=== PATIENT | male | born 1980 | race Caucasian/White ===

== ENCOUNTER 2019-03-21 07:46 | Emergency (ER) | payer BC ==
[~2019-03-21] VITALS: Ht 185.4 cm; Wt 135.5 kg
[2019-03-21 08:06] VITALS: TEMP 98
[2019-03-21] MEDS ORDERED: EFFEXOR 3737.5 MG/TA PO (08:31)
[2019-03-21] MEDS ORDERED: PLAVIX 75MG TAB75 MG PO (08:31)
[2019-03-21] MEDS ORDERED: ZESTRIL 10MG10 MG PO (08:31)
[2019-03-21] MEDS ORDERED: PROTONIX 40MG T40 MG PO (08:31)
[2019-03-21] MEDS ORDERED: LIPITOR 40MG TA40 MG PO (08:32)
[2019-03-21 08:55] LABS: BASO # 0.1 (0.0-0.2); BASO % 0.5 % (0.0-2.0); EOS # 0.3 (0.0-0.7); EOS % 3.4 % (0-4.0); GRAN # 5.4 (1.4-6.5); GRAN % 59.6 % (42.2-75.2); HEMATOCRIT 49.2 % (42.0-52.0); HEMOGLOBIN 17.4 g/dl (13.5-18.0); LYMPH # 2.6 (1.2-3.4); LYMPH % 28.1 % (20.0-51.0); MEAN CELL VOLUME 87 fl (80.0-100.0); MEAN CORPUSCULAR HEMOGLOBIN 31 pg (27.0-31.0); MEAN CORPUSCULAR HGB CONC 35 g/dl (33.0-37.0); MEAN PLATELET VOLUME 9.7 fl (7.4-10.4); MONO # 0.7 (0.1-0.6); MONO % 7.9 % (1.7-9.3); PLATELET COUNT 272 K/mm3 (130-400); RED BLOOD COUNT 5.67 M/mm3 (4.20-5.60); REDCELL DISTRIBUTION WIDTH-CV 13.8 % (11.5-14.5)
[2019-03-21 09:15] LABS: ALANINE AMINOTRANSFERASE 26 U/L (21-72); ALBUMIN 3.9 gm/dL (3.5-5.0); ALKALINE PHOSPHATASE 77 U/L (50-136); ANION GAP 7 mmol/L (7-16); AST,SGOT 27 U/L (15-37); BILIRUBIN,TOTAL 0.7 mg/dL (0.0-1.0); BLOOD UREA NITROGEN 10 mg/dL (9-20); CARBON DIOXIDE 25 mmol/L (22-30); CHLORIDE 106 mmol/L (98-107); CREATININE, serum 1.11 (0.66-1.25); GLUCOSE 88 mg/dL (74-106); POTASSIUM 4.1 mmol/L (3.4-5.0); SODIUM 137 mmol/L (137-145); TOTAL PROTEIN 6.7 gm/dL (6.4-8.2)
[2019-03-21 09:24] LABS: C-REACTIVE PROTEIN < 0.5 mg/dL (0.0-0.9)
[2019-03-21 10:34] LABS: COLLECTION METHOD CLEAN CATCH
[2019-03-21 10:44] LABS: MUCOUS Present /lpf; PH 7 (5-8); SQUAMOUS EPITHELIAL None Seen /hpf; URINE APPEARANCE Clear; URINE BACTERIA None Seen /hpf; URINE BILIRUBIN Negative (NEGATIVE); URINE BLOOD Negative (NEGATIVE); URINE COLOR Yellow; URINE GLUCOSE Negative (NEGATIVE); URINE KETONE Negative (NEGATIVE); URINE LEUKOCYTE ESTERASE Negative (NEGATIVE); URINE NITRATE Negative (NEGATIVE); URINE PROTEIN(semi-quant) Negative (NEGATIVE); URINE RBC 0-2 /hpf; URINE UROBILINOGEN Negative (NEGATIVE)
[2019-03-21] MEDS ORDERED: PERCOCET 325 MG1 TA2 PO (14:39)
[2019-03-21 14:59] VITALS: BP 145/104; PULSE 95
== END 2019-03-21 15:05 | disposition home or self-care (01) ==
LOC: COL.ER 07:46
PROVIDERS: Nurse Practitioner
DX: M54.16 Radiculopathy, lumbar region (principal); I25.10 Atherosclerotic heart disease of native coronary artery without angina pectoris; I10 Essential (primary) hypertension; K21.9 Gastro-esophageal reflux disease without esophagitis; F41.9 Anxiety disorder, unspecified; F17.210 Nicotine dependence, cigarettes, uncomplicated; M54.5 Low back pain; G89.29 Other chronic pain; Z79.02 Long term (current) use of antithrombotics/antiplatelets; Z98.890 Other specified postprocedural states
CPT/HCPCS: A9585; J1170

== ENCOUNTER → 2019-06-02 | Outpatient (CLI) | payer BC ==
[~2019-06-02] MED LIST: EFFEXOR 3737.5 MG/TA PO; LIPITOR 40MG TA40 MG PO; PERCOCET 325 MG1 TA2 PO; PLAVIX 75MG TAB75 MG PO; PROTONIX 40MG T40 MG PO; ZESTRIL 10MG10 MG PO
[2019-06-02 16:50] LABS: CALCIUM 8.6 mg/dL (8.4-10.2); CREATININE, serum 1.24 (0.66-1.25); POTASSIUM 4.1 mmol/L (3.4-5.0)
== END ==
LOC: ZCOL.LAB 16:34
PROVIDERS: Family Medicine
DX: I10 Essential (primary) hypertension (principal)

== ENCOUNTER 2019-08-02 10:14 | Emergency (ER) | payer BC ==
[~2019-08-02] VITALS: Ht 185.4 cm; Wt 134.1 kg
[2019-08-02 10:25] VITALS: TEMP 98.7
[2019-08-02 10:57] LABS: BASO # 0.1 (0.0-0.2); BASO % 0.6 % (0.0-2.0); EOS # 0.3 (0.0-0.7); GRAN # 7.4 (1.4-6.5); HEMATOCRIT 44.6 % (42.0-52.0); HEMOGLOBIN 15.6 g/dl (13.5-18.0); LYMPH # 2.1 (1.2-3.4); LYMPH % 20.1 % (20.0-51.0); MEAN CELL VOLUME 89 fl (80.0-100.0); MEAN CORPUSCULAR HEMOGLOBIN 31 pg (27.0-31.0); MEAN CORPUSCULAR HGB CONC 35 g/dl (33.0-37.0); MEAN PLATELET VOLUME 9.9 fl (7.4-10.4); MONO # 0.6 (0.1-0.6); MONO % 5.9 % (1.7-9.3); PLATELET COUNT 255 K/mm3 (130-400); RED BLOOD COUNT 4.99 M/mm3 (4.20-5.60); REDCELL DISTRIBUTION WIDTH-CV 13.1 % (11.5-14.5)
[2019-08-02 11:01] LABS: PROTHROMBIN TIME 11.4 SECONDS (9.7-12.8)
[2019-08-02 11:02] LABS: ALANINE AMINOTRANSFERASE 33 U/L (21-72); ALBUMIN 4.1 gm/dL (3.5-5.0); ALKALINE PHOSPHATASE 64 U/L (50-136); ANION GAP 7 mmol/L (7-16); AST,SGOT 39 U/L (15-37); BILIRUBIN,TOTAL 0.5 mg/dL (0.0-1.0); BLOOD UREA NITROGEN 14 mg/dL (9-20); CALCIUM 8.9 mg/dL (8.4-10.2); CARBON DIOXIDE 25 mmol/L (22-30); CHLORIDE 108 mmol/L (98-107); CREATININE, serum 1.18 (0.66-1.25); GLUCOSE 82 mg/dL (74-106); LIPASE 143 U/L (23-300); PHOSPHOROUS 2.8 mg/dL (2.5-4.5); POTASSIUM 4.8 mmol/L (3.4-5.0); SODIUM 139 mmol/L (137-145)
[2019-08-02 11:04] LABS: PARTIAL THROMBOPLASTIN TIME 29.4 SECONDS (26.0-37.0)
[2019-08-02 11:19] LABS: TROPONIN-I < 0.012 ng/mL (0.000-0.035)
[2019-08-02 12:15] VITALS: BP 117/88; PULSE 62
== END 2019-08-02 12:59 ==
LOC: COL.ER 10:14
PROVIDERS: Emergency Medicine
DX: R07.89 Other chest pain (principal); F17.210 Nicotine dependence, cigarettes, uncomplicated; K21.9 Gastro-esophageal reflux disease without esophagitis; I25.10 Atherosclerotic heart disease of native coronary artery without angina pectoris; Z95.9 Presence of cardiac and vascular implant and graft, unspecified; Z90.89 Acquired absence of other organs; Z79.02 Long term (current) use of antithrombotics/antiplatelets

== ENCOUNTER 2019-08-27 09:56 | Emergency (ER) | payer BC ==
[~2019-08-27] VITALS: Ht 185.4 cm; Wt 133.2 kg
[2019-08-27 10:05] VITALS: TEMP 97.3
[2019-08-27 11:15] LABS: BASO % 0.6 % (0.0-2.0); EOS # 0.2 (0.0-0.7); EOS % 3.5 % (0-4.0); GRAN # 3.1 (1.4-6.5); GRAN % 56.7 % (42.2-75.2); HEMATOCRIT 43.7 % (42.0-52.0); HEMOGLOBIN 15.6 g/dl (13.5-18.0); LYMPH # 1.7 (1.2-3.4); MEAN CELL VOLUME 86 fl (80.0-100.0); MEAN CORPUSCULAR HEMOGLOBIN 31 pg (27.0-31.0); MEAN CORPUSCULAR HGB CONC 36 g/dl (33.0-37.0); MEAN PLATELET VOLUME 9.7 fl (7.4-10.4); MONO # 0.4 (0.1-0.6); MONO % 6.8 % (1.7-9.3); PLATELET COUNT 284 K/mm3 (130-400); RED BLOOD COUNT 5.08 M/mm3 (4.20-5.60); REDCELL DISTRIBUTION WIDTH-CV 12.5 % (11.5-14.5)
[2019-08-27 11:18] LABS: ALANINE AMINOTRANSFERASE 27 U/L (21-72); ALBUMIN 4.2 gm/dL (3.5-5.0); ALKALINE PHOSPHATASE 73 U/L (50-136); ANION GAP 10 mmol/L (7-16); AST,SGOT 44 U/L (15-37); BILIRUBIN,TOTAL 0.6 mg/dL (0.0-1.0); BLOOD UREA NITROGEN 14 mg/dL (9-20); CALCIUM 9.1 mg/dL (8.4-10.2); CARBON DIOXIDE 21 mmol/L (22-30); CHLORIDE 108 mmol/L (98-107); CREATININE, serum 0.99 (0.66-1.25); GLUCOSE 82 mg/dL (74-106); LIPASE 171 U/L (23-300); POTASSIUM 4.5 mmol/L (3.4-5.0); SODIUM 139 mmol/L (137-145); TOTAL PROTEIN 6.9 gm/dL (6.4-8.2)
[2019-08-27 11:30] LABS: TROPONIN-I < 0.012 ng/mL (0.000-0.035)
[2019-08-27] MEDS ORDERED: FLEXERIL 1010 MG/TAB PO (15:13)
[2019-08-27] MEDS ORDERED: NORCO 325 MG-51 TAB PO (15:13)
[2019-08-27] MEDS ORDERED: CARAFATE 1GM1 G PO (15:15)
[2019-08-27 15:32] VITALS: BP 136/100; PULSE 61
== END 2019-08-27 15:32 | disposition home or self-care (01) ==
LOC: COL.ER 09:56
PROVIDERS: Emergency Medicine
DX: R07.89 Other chest pain (principal); R10.13 Epigastric pain; R10.12 Left upper quadrant pain; I25.10 Atherosclerotic heart disease of native coronary artery without angina pectoris; K21.9 Gastro-esophageal reflux disease without esophagitis; Z79.02 Long term (current) use of antithrombotics/antiplatelets; Z87.891 Personal history of nicotine dependence; Z95.5 Presence of coronary angioplasty implant and graft
CPT/HCPCS: J2405; J3010; J7030; Q9967

== ENCOUNTER 2020-01-21 13:23 | Emergency (ER) | payer BC ==
[~2020-01-21] VITALS: Ht 185.4 cm; Wt 131.8 kg
[~2020-01-21 13:23] MED LIST changes: +CARAFATE 1GM1 G PO; +FLEXERIL 1010 MG/TAB PO; +NORCO 325 MG-51 TAB PO; +TOPROL XL 25MG25 MG; +TOPROL XL 50MG50 MG PO; +ZANTAC 7575 MG PO
[2020-01-21 15:22] LABS: BASO % 0.5 % (0.0-2.0); EOS # 0.2 (0.0-0.7); EOS % 2.2 % (0-4.0); GRAN # 5.9 (1.4-6.5); GRAN % 76.4 % (42.2-75.2); HEMATOCRIT 45.7 % (42.0-52.0); HEMOGLOBIN 15.9 g/dl (13.5-18.0); LYMPH # 1.2 (1.2-3.4); LYMPH % 15.7 % (20.0-51.0); MEAN CELL VOLUME 87 fl (80.0-100.0); MEAN CORPUSCULAR HEMOGLOBIN 30 pg (27.0-31.0); MEAN CORPUSCULAR HGB CONC 35 g/dl (33.0-37.0); MEAN PLATELET VOLUME 9.8 fl (7.4-10.4); MONO # 0.4 (0.1-0.6); MONO % 4.7 % (1.7-9.3); PLATELET COUNT 229 K/mm3 (130-400); RED BLOOD COUNT 5.26 M/mm3 (4.20-5.60); REDCELL DISTRIBUTION WIDTH-CV 13.2 % (11.5-14.5)
[2020-01-21 15:23] LABS: PROTHROMBIN TIME 11.6 SECONDS (9.7-12.8)
[2020-01-21 15:25] LABS: PARTIAL THROMBOPLASTIN TIME 30.8 SECONDS (26.0-37.0)
[2020-01-21 15:27] LABS: ALANINE AMINOTRANSFERASE 29 U/L (4-49); ALBUMIN 4.2 gm/dL (3.5-5.0); ALKALINE PHOSPHATASE 68 U/L (50-136); ANION GAP 8 mmol/L (7-16); AST,SGOT 31 U/L (15-37); BLOOD UREA NITROGEN 13 mg/dL (9-20); CALCIUM 9.3 mg/dL (8.4-10.2); CARBON DIOXIDE 23 mmol/L (22-30); CHLORIDE 105 mmol/L (98-107); CREATININE, serum 1.08 (0.66-1.25); GLUCOSE 95 mg/dL (74-106); SODIUM 135 mmol/L (137-145); TOTAL PROTEIN 7.4 gm/dL (6.4-8.2)
[2020-01-21 15:29] LABS: D-DIMER < 200.00 ng/mLDDu (200-230)
[2020-01-21 15:39] LABS: TROPONIN-I < 0.012 ng/mL (0.000-0.035)
[2020-01-21] MEDS ORDERED: ZOFRAN 4MG T4 MG/TAB PO (19:00)
[2020-01-21] MEDS ORDERED: PROTONIX 40MG T40 MG PO (19:00)
[2020-01-21 19:07] VITALS: BP 148/78; PULSE 84; TEMP 98.2
== END 2020-01-21 19:27 | disposition home or self-care (01) ==
LOC: COL.ER 13:23
PROVIDERS: Family Medicine
DX: R07.2 Precordial pain (principal); E86.0 Dehydration; I25.10 Atherosclerotic heart disease of native coronary artery without angina pectoris; F17.200 Nicotine dependence, unspecified, uncomplicated; Z95.5 Presence of coronary angioplasty implant and graft; Z79.02 Long term (current) use of antithrombotics/antiplatelets
CPT/HCPCS: J3010; J7030

== ENCOUNTER 2020-02-21 04:05 | Inpatient (IN) | payer BC ==
[2020-02-21] VITALS (365 sets, daily range): BP systolic 111–140; BP diastolic 77–89; PULSE 53–80; TEMP 97–98; O2SAT 87–100
[~2020-02-21] VITALS: Ht 185.4 cm; Wt 125.2 kg
[~2020-02-21 04:05] MED LIST changes: +ZOFRAN 4MG T4 MG/TAB PO
[2020-02-21 04:26] LABS: BASO # 0.1 (0.0-0.2); BASO % 0.6 % (0.0-2.0); EOS # 0.4 (0.0-0.7); EOS % 4.4 % (0-4.0); GRAN # 4.2 (1.4-6.5); GRAN % 52.3 % (42.2-75.2); HEMATOCRIT 43.3 % (42.0-52.0); HEMOGLOBIN 15.2 g/dl (13.5-18.0); LYMPH # 2.9 (1.2-3.4); LYMPH % 36.5 % (20.0-51.0); MEAN CELL VOLUME 87 fl (80.0-100.0); MEAN CORPUSCULAR HEMOGLOBIN 31 pg (27.0-31.0); MEAN CORPUSCULAR HGB CONC 35 g/dl (33.0-37.0); MEAN PLATELET VOLUME 9.7 fl (7.4-10.4); MONO # 0.5 (0.1-0.6); PLATELET COUNT 249 K/mm3 (130-400); RED BLOOD COUNT 4.99 M/mm3 (4.20-5.60); REDCELL DISTRIBUTION WIDTH-CV 12.6 % (11.5-14.5)
[2020-02-21 04:31] LABS: PROTHROMBIN TIME 10.8 SECONDS (9.7-12.8)
[2020-02-21 04:34] LABS: PARTIAL THROMBOPLASTIN TIME 30.8 SECONDS (26.0-37.0)
[2020-02-21 04:35] LABS: ALANINE AMINOTRANSFERASE 31 U/L (4-49); ALKALINE PHOSPHATASE 62 U/L (50-136); ANION GAP 7 mmol/L (7-16); AST,SGOT 36 U/L (15-37); BILIRUBIN,TOTAL 0.6 mg/dL (0.0-1.0); BLOOD UREA NITROGEN 10 mg/dL (9-20); CALCIUM 8.8 mg/dL (8.4-10.2); CARBON DIOXIDE 20 mmol/L (22-30); CHLORIDE 107 mmol/L (98-107); CREATININE, serum 1.06 (0.66-1.25); GLUCOSE 137 mg/dL (74-106); POTASSIUM 3.9 mmol/L (3.4-5.0); SODIUM 134 mmol/L (137-145); TOTAL PROTEIN 7.2 gm/dL (6.4-8.2)
[2020-02-21 04:49] LABS: TROPONIN-I < 0.012 ng/mL (0.000-0.035)
[2020-02-21] MEDS ORDERED: NORVASC 10MG10 MG PO (08:27)
--- NOTE | 2020-02-21 09:45 | NUR ---
Pt arrived into room IMCU 16. He is ambulatory, A/O x4. His breathing is even and unlabored on RA. Pt denies SOB. Reports Chest pain /, ER nurse reports Nitro not relieving pain and therefore drip stopped. Heparin continued at 10ml/hr. POC discussed with patient who verbalizes understanding. No needs at this time. Pt to remain NPO.
--- NOTE | 2020-02-21 13:09 | NUR ---
SEE MEREGE FOR ALL MEDICATION ADMIN. TIMES AND INTRA AND POST SEDATION
--- NOTE | 2020-02-21 13:48 | NUR ---
Pt arrives to IMCU room 16 via cart. Describes continued midsternal chest pain that radiates through to upper back, SR no ST abnormalities on bedside monitor, call placed for EKG.
--- NOTE | 2020-02-21 14:07 | NUR ---
Poell in to see patient orders for CT with PE protocol. Pt cath is negative. Per report patient hyperventilated during procedure.
--- NOTE | 2020-02-21 15:32 | NUR ---
Returned from CT prn pain med given, instructed technical marketing consultant light use.
--- NOTE | 2020-02-21 19:20 | NUR ---
Bedside report received from ARABELLA Alcala
--- NOTE | 2020-02-21 21:00 | NUR ---
Patient has complaints of pain at this time rated 7/10 in the center of his chest that radiates to his left chest, described as tightness. Assessment complete. Patient has no SOA. Pain medication to be provided. Patient otherwise looks well with no significant findings in exam. Cath site is clean, dry, with no hematoma or pain. patient brought some new water and a pepsi per his request. Provided. No further needs. will continue to monitor pain. Call light within reach.
--- NOTE | 2020-02-21 22:20 | NUR ---
Patient continues to have pain, so second [place] tab given per protocol. Will continue to monitor.
[2020-02-22] VITALS (26 sets, daily range): BP systolic 96–137; BP diastolic 60–90; PULSE 61–73; TEMP 97.8–98; O2SAT 38–99
--- NOTE | 2020-02-22 00:04 | NUR ---
Patient was continuing to have pain despite second dose. Order received for one time dose of 2mg morphine IV. Patient now reports pain a 3/10. Will continue to monitor. Call light within reach.
[2020-02-22 06:21] LABS: BASO % 0.7 % (0.0-2.0); EOS # 0.2 (0.0-0.7); EOS % 3.9 % (0-4.0); GRAN # 2.9 (1.4-6.5); HEMATOCRIT 41.5 % (42.0-52.0); HEMOGLOBIN 14.3 g/dl (13.5-18.0); LYMPH # 2.1 (1.2-3.4); LYMPH % 36.3 % (20.0-51.0); MEAN CELL VOLUME 90 fl (80.0-100.0); MEAN CORPUSCULAR HEMOGLOBIN 31 pg (27.0-31.0); MEAN CORPUSCULAR HGB CONC 35 g/dl (33.0-37.0); MEAN PLATELET VOLUME 9.9 fl (7.4-10.4); MONO # 0.4 (0.1-0.6); MONO % 7.7 % (1.7-9.3); PLATELET COUNT 197 K/mm3 (130-400); RED BLOOD COUNT 4.62 M/mm3 (4.20-5.60); REDCELL DISTRIBUTION WIDTH-CV 12.9 % (11.5-14.5)
[2020-02-22 06:43] LABS: CALCIUM 8.7 mg/dL (8.4-10.2); CREATININE, serum 1.12 (0.66-1.25); MAGNESIUM 2.2 mg/dL (1.6-2.3); POTASSIUM 4.5 mmol/L (3.4-5.0)
--- NOTE | 2020-02-22 07:13 | NUR ---
Bedside report given to ARABELLA Neri
--- NOTE | 2020-02-22 10:07 | NUR ---
CLARKE met with the patient to discuss discharge plan. The patient lives in [place] with his xawet-pqra-ovs daughter and works at [employer]. He states that his ynmarcqmb-[id number]-lim son will be coming to live with them soon. His daughter is staying with a design manager while he is here. He reports independence with ADLs and has a cane available to him if needed. The patient's PCP is Dr. Shanelle Wang and he receives his medications at [facility]. He reports no difficulties obtaining his meds. The patient does not have advanced directives, but he was interested in obtaining a form for DPOA-HC. CLARKE provided. The patient is not . His mother, Anila Gatica (ph#[phone]), is his emergency contact and she lives in [facility]. The patient plans to return home with his children upon discharge. No additional needs at this time.
--- NOTE | 2020-02-22 10:08 | NUR ---
Assessment completed, alert/oriented, vital signs stable, reports continued chest/ epigastric discomfort that is constant, heart RRR/ distal pulses are palapble, lungs CTA/ no reps.difficulty noted, patient is not eating his breakfast as he is hoping to have and EGD done today/ however there is no order for this procedure at this time, will dsicuss plan of care with hospitalist, denies other needs at this fan
--- NOTE | 2020-02-22 12:39 | NUR ---
Patient discharging, instructed to follow up with GI/PCP/Cardiology as we have scheduled for him, instructed to continue all previous home meds with NO new meds or changes made, IV and tele remvoed, leaving with his , I personally escorted him out the door
== END 2020-02-22 12:41 | disposition home or self-care (01) | DRG 287 ==
LOC: COL.ER 04:05 → IMCU 07:53
PROVIDERS: Emergency Medicine; ADMIT Internal Medicine
PROC: 4A023N7 Measurement of Cardiac Sampling and Pressure, Left Heart, Percutaneous Approach (ICD-10-PCS; principal; 2020-02-21)
PROC: B2111ZZ Fluoroscopy of Multiple Coronary Arteries using Low Osmolar Contrast (ICD-10-PCS; 2020-02-21)
PROC: B2151ZZ Fluoroscopy of Left Heart using Low Osmolar Contrast (ICD-10-PCS; 2020-02-21)
DX: R07.89 Other chest pain (principal); G89.29 Other chronic pain; I25.10 Atherosclerotic heart disease of native coronary artery without angina pectoris; Z95.5 Presence of coronary angioplasty implant and graft; K21.9 Gastro-esophageal reflux disease without esophagitis; F32.9 Major depressive disorder, single episode, unspecified; E78.49 Other hyperlipidemia; I10 Essential (primary) hypertension; F17.210 Nicotine dependence, cigarettes, uncomplicated
CPT/HCPCS: 99239; C1760; C1894; J1644; J2250; J2270; J2405; J3010; J7030; Q9967

== ENCOUNTER 2020-05-27 09:50 | Emergency (ER) | payer BC ==
[~2020-05-27] VITALS: Ht 185.4 cm; Wt 129.5 kg
[~2020-05-27 09:50] MED LIST changes: +NORVASC 10MG10 MG PO; +TOPROL XL 25MG25 MG PO
[2020-05-27 09:59] VITALS: TEMP 98.6
[2020-05-27 11:42] VITALS: BP 136/102; PULSE 88
== END 2020-05-27 11:42 | disposition home or self-care (01) ==
LOC: COL.ER 09:50
DX: S93.401A Sprain of unspecified ligament of right ankle, initial encounter (principal); I10 Essential (primary) hypertension; E78.5 Hyperlipidemia, unspecified; I25.2 Old myocardial infarction; F17.200 Nicotine dependence, unspecified, uncomplicated; Z79.02 Long term (current) use of antithrombotics/antiplatelets; X50.1XXA Overexertion from prolonged static or awkward postures, initial encounter; Y92.009 Unspecified place in unspecified non-institutional (private) residence as the place of occurrence of the external cause

== ENCOUNTER 2020-07-16 13:57 | Emergency (ER) | payer BC ==
[~2020-07-16] VITALS: Ht 185.4 cm; Wt 129.5 kg
[2020-07-16 15:00] LABS: BASO # 0.1 (0.0-0.2); BASO % 0.7 % (0.0-2.0); EOS # 0.3 (0.0-0.7); EOS % 2.7 % (0-4.0); GRAN # 7.1 (1.4-6.5); GRAN % 71.8 % (42.2-75.2); HEMATOCRIT 49.7 % (42.0-52.0); HEMOGLOBIN 17.8 g/dl (13.5-18.0); LYMPH # 1.8 (1.2-3.4); LYMPH % 17.8 % (20.0-51.0); MEAN CELL VOLUME 87 fl (80.0-100.0); MEAN CORPUSCULAR HEMOGLOBIN 31 pg (27.0-31.0); MEAN CORPUSCULAR HGB CONC 36 g/dl (33.0-37.0); MEAN PLATELET VOLUME 9.7 fl (7.4-10.4); MONO # 0.7 (0.1-0.6); MONO % 6.6 % (1.7-9.3); PLATELET COUNT 298 K/mm3 (130-400); REDCELL DISTRIBUTION WIDTH-CV 12.8 % (11.5-14.5)
[2020-07-16 15:19] LABS: ALANINE AMINOTRANSFERASE 32 U/L (4-49); ALBUMIN 4.2 gm/dL (3.5-5.0); ALKALINE PHOSPHATASE 72 U/L (50-136); ANION GAP 7 mmol/L (7-16); AST,SGOT 37 U/L (15-37); BILIRUBIN,TOTAL 0.5 mg/dL (0.0-1.0); BLOOD UREA NITROGEN 12 mg/dL (9-20); CALCIUM 8.9 mg/dL (8.4-10.2); CARBON DIOXIDE 23 mmol/L (22-30); CHLORIDE 105 mmol/L (98-107); CREATININE, serum 0.95 (0.66-1.25); GLUCOSE 127 mg/dL (74-106); POTASSIUM 3.9 mmol/L (3.4-5.0); SODIUM 135 mmol/L (137-145); TOTAL PROTEIN 7.2 gm/dL (6.4-8.2)
[2020-07-16 15:22] LABS: C-REACTIVE PROTEIN < 0.5 mg/dL (0.0-0.9)
[2020-07-16 15:29] LABS: TROPONIN-I < 0.012 ng/mL (0.000-0.035)
[2020-07-16 17:45] VITALS: TEMP 98
[2020-07-16 18:55] VITALS: BP 146/93; PULSE 96
== END 2020-07-16 18:55 | disposition home or self-care (01) ==
LOC: COL.ER 13:57 → LDRO 13:57 → EDSTATUS 14:27 → COL.ER 18:55
PROVIDERS: Nurse Practitioner
DX: B34.9 Viral infection, unspecified (principal); R07.9 Chest pain, unspecified; I25.10 Atherosclerotic heart disease of native coronary artery without angina pectoris; I25.2 Old myocardial infarction; F17.200 Nicotine dependence, unspecified, uncomplicated; Z20.822 Contact with and (suspected) exposure to COVID-19; Z98.61 Coronary angioplasty status; Z90.49 Acquired absence of other specified parts of digestive tract; Z79.02 Long term (current) use of antithrombotics/antiplatelets
CPT/HCPCS: J2270; J2405; J7030